=== PATIENT | female | born 1950 | race Caucasian/White ===

== ENCOUNTER → 2017-01-19 | Outpatient (CLI) | payer MEDICARE, MEDICAID ==
[2017-01-19 18:25] LABS: HEMATOCRIT 38.2 % (33.0-46.0); HEMOGLOBIN 11.8 g/dL (10.0-15.0); IMMATURE GRANULOCYTE % 0.3 %; LYMPHOCYTE # 2.6 K/uL (0.8-4.0); LYMPHOCYTE % 39.3 %; MCH 27.4 pg (27.0-34.0); MCHC 30.9 gm/dL (32.0-36.5); MCV 88.8 fl (83.0-98.0); MONOCYTE # 0.4 K/uL (0.0-1.0); MONOCYTE % 5.8 %; MPV 10.5 fl (9.4-12.4); NEUTROPHIL # (ANC) 3.6 K/uL (1.8-7.8); NEUTROPHIL % 54.6 %; NRBC % 0 /100WBC (0-0.00); PLATELET COUNT 205 K/uL (150-450); RDW-CV 14.4 % (11.9-14.6); WBC 6.5 K/uL (4.0-11.0)
[2017-01-19 18:41] LABS: ALBUMIN 3.5 gm/dL (3.5-5.0); ANION GAP 13.1 (10.0-19.0); CALCIUM 8.6 mg/dL (8.5-10.5); CREATININE 1.2 mg/dL (0.5-1.1); POTASSIUM 5.1 mMol/L (3.7-5.1); TOTAL BILIRUBIN 0.3 mg/dL (0.0-1.5)
== END | disposition disaster alternative care site (69) ==
LOC: LNHI 18:17
PROVIDERS: Internal Medicine Cardiovascular Disease
DX: I11.0 Hypertensive heart disease with heart failure (principal); I50.32 Chronic diastolic (congestive) heart failure; E11.65 Type 2 diabetes mellitus with hyperglycemia; E66.01 Morbid (severe) obesity due to excess calories

== ENCOUNTER → 2017-02-02 | Outpatient (CLI) | payer MEDICARE, MEDICAID | END | disposition disaster alternative care site (69) | LOC: GRAD 15:31 | DX: N19 Unspecified kidney failure (principal); N20.0 Calculus of kidney ==

== ENCOUNTER → 2017-02-02 | Outpatient (CLI) | payer MEDICARE, MEDICAID | END | disposition disaster alternative care site (69) | LOC: LGSMG 15:43 | DX: N19 Unspecified kidney failure (principal) ==

== ENCOUNTER → 2017-03-25 | Outpatient (CLI) | payer MEDICARE, MEDICAID | LOC: LNHI 16:56 | DX: I50.32 Chronic diastolic (congestive) heart failure (principal); E78.2 Mixed hyperlipidemia; I10 Essential (primary) hypertension; R53.83 Other fatigue; R06.01 Orthopnea; E66.9 Obesity, unspecified ==